=== PATIENT | female | born 1985 | race Caucasian/White ===

== ENCOUNTER 2019-11-20 19:19 | Emergency (ER) | payer OTHER ==
[2019-11-20] MEDS ORDERED: ACETAMINOPHEN 325 MG TABLET (FP) PO ONE (20:01)
[2019-11-20] MEDS ORDERED: ACETAMINOPHEN 325 MG TABLET (FP) ONE (20:03)
[2019-11-20 20:21] VITALS: BMI 26.4
[2019-11-20 20:39] LABS: BASO % 0.9 % (0-2.0); EOS % 0.1 % (0-4.5); HEMOGLOBIN 12.7 GM/dl (10.7-15.3); LYMPH % 15.2 % (8-40); MCH 28.7 pg (25.7-33.7); MCHC 32.6 g/dl (32.0-36.0); MEAN CELL VOLUME 88.1 fl (80-96); MEAN PLT VOLUME 8.4 fl (7.5-11.1); MONO % 8.7 % (3.8-10.2); NEUT % 75.1 % (42.8-82.8); PLATELET COUNT 282 K/MM3 (134-434); RBC 4.43 M/mm3 (3.60-5.2); RDW 12.9 % (11.6-15.6); WHITE BLOOD COUNT 5.9 K/mm3 (4.0-10.8)
[2019-11-20 20:55] LABS: ALBUMIN 3.3 g/dl (3.4-5.0); BILIRUBIN,TOTAL 0.4 mg/dl (0.2-1); CALCIUM 8.3 mg/dl (8.5-10); CREATININE 0.6 mg/dl (0.55-1.3); POTASSIUM 3.8 mmol/L (3.5-5.1)
[2019-11-20 23:46] VITALS: BP 112/84; PULSE 108
[2019-11-21 00:04] VITALS: TEMP 99.8
--- NOTE | 2019-11-21 03:33 | PDOC ---
Documentation entered by Michael Fernando SCRIBE, acting as scribe for Iona Gayle MD. Iona Gayle MD: This documentation has been prepared by the Abdullahi mayorga Angel, SCRIBE, under my direction and personally reviewed by me in its entirety. I confirm that the documentation accurately reflects all work, treatment, procedures, and medical decision making performed by me. History of Present Illness - General Chief Complaint: Respiratory Stated Complaint: FEVER RESPIRATORY CONGESTION BODY ACHES Time Seen by Provider: 11/20/19 19:32 History Source: Patient Exam Limitations: No Limitations, Clinical Condition - History of Present Illness Initial Comments: 11/20/19 20:00 The patient is a 34 year old female with a significant past medical history of kidney stones, D&C and uterine polyp removal (November 12) who presents to the ED with flu-like symptoms since Tuesday. The patient reports rhinorrhea, facial pressure, body aches, headaches, loss of appetite, minimal cough and subjective fever which she went to [facility] on Tuesday to check out and they did an influenza rapid test (results were negative), patient was then told to home isolate and take dayquil. The patient states she took her temperature at 5pm today which was 101.3 F orally. 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 Patient denies SOB, N/V/D or rash. 11/20/19 20:27 Past History - Past Medical History Allergies/Adverse Reactions: Allergies Allergy/AdvReac Type Severity Reaction Status Date / Time No Known Allergies Allergy Verified 11/20/19 19:22 Home Medications: Ambulatory Orders Aspirin 81 mg PO DAILY 11/20/19 Estradiol 2 mg PO BID 11/20/19 [place]-3 Fatty Acids/Fish Oil [Fish Oil 1,000 mg Capsule] 1 each PO DAILY 11/20/19 Vit 93/Iron Fum/Folic [ Formula Tablet] 1 each PO DAILY 11/20/19 Fluconazole [Diflucan] 150 mg PO ONCE #2 tablet 11/21/19 levoFLOXacin [Levaquin -] 500 mg PO DAILY #7 tablet 11/21/19 Disorders: Yes (KIDNEY STONES) Kidney Stones: Yes - Reproductive History Polycystic Ovaries: Yes - Psycho Social/Smoking Cessation Hx Smoking History: Never smoked Hx Alcohol Use: No Drug/Substance Use Hx: No Substance Use Type: None Hx Substance Use Treatment: No Review of Systems - Review of Systems Able to Perform ROS?: Yes Comments:: 11/20/19 20:07 GENERAL/CONSTITUTIONAL: + Fever of 101.3 F orally. No weakness. HEAD, EYES, EARS, NOSE AND THROAT: +Rhinorrhea, facial pressure. No change in vision. No ear pain or discharge. No sore throat. CARDIOVASCULAR: No chest pain or shortness of breath. RESPIRATORY: No cough, wheezing, or hemoptysis. GASTROINTESTINAL: No nausea, vomiting, diarrhea or constipation. GENITOURINARY: No dysuria, frequency, or change in urination. MUSCULOSKELETAL: +Body aches. No neck or back pain. SKIN: No rash NEUROLOGIC: + Headache. vertigo, loss of consciousness, or change in strength/sensation. ENDOCRINE: +Loss of appetite. No increased thirst. No abnormal weight change. HEMATOLOGIC/LYMPHATIC: No anemia, easy bleeding, or history of blood clots. ALLERGIC/IMMUNOLOGIC: No hives or skin allergy. *Physical Exam - Physical Exam 11/20/19 20:26 GENERAL: Awake, alert, and fully oriented, in no acute distress HEAD: No signs of trauma EYES: PERRLA, EOMI, sclera anicteric, conjunctiva clear ENT: + Slight tenderness to palpation of the right frontal sinus area. +Right lateral aspect of the nasal bridge. Auricles normal inspection, hearing grossly normal, nares patent, oropharynx clear without exudates. Moist mucosa NECK: Normal ROM, supple, no lymphadenopathy, JVD, or masses LUNGS: Breath sounds equal, clear to auscultation bilaterally. No wheezes, and no crackles HEART: Regular rate and rhythm, normal S1 and S2, no murmurs, rubs or gallops ABDOMEN: Soft, nontender, normoactive bowel sounds. No guarding, no rebound. No masses EXTREMITIES: Normal range of motion, no edema. No clubbing or cyanosis. No cords, erythema, or tenderness NEUROLOGICAL: Cranial nerves II through XII grossly intact. Normal speech, normal gait SKIN: Warm, Dry, normal turgor, no rashes or lesions noted. ED Treatment Course - LABORATORY CBC & Chemistry Diagram: 11/20/19 20:25 03/10/20 20:25 Medical Decision Making - Medical Decision Making As noted above, this 34-year-old woman with a history of kidney stones but no other significant past medical history presents with 4-day history of subjective fever (patient did not have thermometer) and body aches; patient had no known Covid-19 contacts or recent travel although she states that there were several influenza cases in her place of work ([facility]). influenza rapid test performed at urgent care 2 days prior to presentation was negative. [facility] measured at 101.3 F; patient also had right-sided facial discomfort with nasal congestion and clear coryza. There was minimal cough noted for the last few days but no shortness of breath or wheezing. Patient was placed in negative ventilation room and evaluation was done with full respiratory and contact precautions. As noted above, physical exam is essentially normal except for fever (101.4 F)mi, heart rate of 116/min and mild tenderness in the right frontal/right ethmoid/right maxillary sinus areas. Patient had no respiratory distress and lungs were clear bilaterally; BP116/78 pulse oximetry was 100% on room air The patient had CBC/chemistry profile/serum sent and nasopharyngeal (bilateral) swabs/oral pharyngeal swab sent for influenza rapid test, RSV; quick strep swab also sent because patient has had strep pharyngitis as an adult (no sore throat now). Acetaminophen 650 mg given by mouth. Patient provided with water for oral hydration. Influenza/RSV/strep test negative. CBC and chemistry profile essentially normal with normal white blood cell count and normal differential. Temperature decreased eventually to 99.8 F with heart rate decreasing to 108/min Message left with [facility] [place] virus line ([phone]) that remaining swab to rule out Covid-19 was at [facility]. [facility] contacted and confidential case report with patient's contact information faxed to the lab Portable chest x-ray performed. Interpretation by Imaging internet sales consultant: Mild patchy opacities noted at lung bases left greater than right without effusions or infiltrates. Poor inspiratory effort. Levaquin 500 mg by mouth daily for 1 week transmitted to patient's pharmacy. Results discussed with the patient; the patient should maintain self quarantine until results of her [place] virus screening test. She should continue to rest and drink plenty of fluids. Work documentation provided for the patient. She should return to the emergency room if she has persistent shortness of breath or wheezing Discharge - Discharge Information Problems reviewed: Yes Clinical Impression/Diagnosis: Acute viral syndrome Fever Qualifiers: Fever type: unspecified Qualified Code(s): R50.9 - Fever, unspecified Condition: Stable Disposition: HOME - Additional Discharge Information Prescriptions: Fluconazole [Diflucan] 150 mg PO ONCE #2 tablet levoFLOXacin [Levaquin -] 500 mg PO DAILY #7 tablet - Follow up/Referral - Patient Discharge Instructions Patient Printed Discharge Instructions: DI for Viral Syndrome Additional Instructions: You should remain in self quarantine at home until results of [place] virus screening is known Rest; drink plenty of fluids continue Flonase/Adele as suggested previously Acetaminophen/ibuprofen/naproxen as needed for fever Return to ER if you have persistent high fever, shortness of breath Contact your general physician regarding your current illness and followup as arranged - Post Discharge Activity Work/Back to School Note: Back to Work
== END 2019-11-21 00:35 | disposition home or self-care (01) ==
LOC: FER 19:19
DX: B34.9 Viral infection, unspecified (principal); R50.9 Fever, unspecified; N20.0 Calculus of kidney
CPT/HCPCS: 36415; 71045-TC-FY; 80053; 84703; 85025; 87798; 87804; 87807; 87880; 99284-25